=== PATIENT | female | born 1960 | race African-American/Black ===

== ENCOUNTER 2017-01-01 20:06 | Emergency (ER) | payer OTHER ==
[2017-01-01 20:19] VITALS: BMI 21.2
--- NOTE | 2017-01-01 20:41 | DR.GENAD ---
HPI - PCP Primary Care Physician: Ellie LISA - Complaint/Symptoms Chief Complaint Doctors Comments: Patient states that she get fluid drained every 2-3 months; tonkhris had dyspnea and came to the ED. Dr Beal usually drains the excess fluid every 2-3 months according to patient Chief Complaint:: CIRROSIS OF THE LIVER, ABDOMINAL SWELLING, DIFFICULTY BREATHING - Source History Provided: Patient, Family Member - Mode of Arrival Mode of Arrival: Wheelchair - Timing Onset of Chief Complaint: 01/01/17 PMH - PMH Past Medical History: Yes Past Medical History: Hypertension, DE Past Medical History Comment: ENLARGED HEART, IRREGULAR HEART RATE Past Surgical History: Yes Surgical History: CABG/Valve Surgery Past Surgical History Comment: PACEMAKER, PORT - Family History History of Family Medical Conditions: Yes Family Medical History: Diabetes Mellitus, Cancer - Social History Does patient currently use any type of tobacco product: No Have you used tobacco products in the last 12 months: No Type of Tobacco Use: None Does any household member use tobacco: No Alcohol Use: None Do you use any recreational Drugs:: No Lives With: Spouse Lives Where: Home - infectious screening In the last 2 months have you had wt loss of >10#?: YES Have you had fever, night sweats or hemotysis?: No Have you traveled outside the country in the last 6 months?: No Isolation: Standard ROS - Review of Systems Constitutional: No Symptoms Reported Eyes: No Symptoms Reported ENTM: No Symptoms Reported Respiratoy: No Symptoms Reported Cardiovascular: No Symptoms Reported Gastrointestinal/Abdominal: No Symptoms Reported Genitourinary: No Symptoms Reported Neurological: No Symptoms Reported Musculoskeletal: No Symptoms Reported Integumentary: No Symptoms Reported Hematologic/Lymphatic: No Symptoms Reported Endocrine: No Symptoms Reported Psychiatric: No Symptoms Reported All Other Systems: Reviewed and Negative PE - Vital Signs Vitals: Pulse Rate 115 Respiratory Rate 16 Blood Pressure 58/44 O2 Sat by Pulse Oximetry 96 - General Limitations: No Limitations General Appearance: Alert - Head Head Exam: Normal Inspection, Atraumatic - Eyes Eye exam: Normal Appearance, PERRL, EOMI - ENT ENT Exam: Normal Exam External Ear Exam: Normal External Inspection TM/Canal Exam: Bilateral Normal Nose Exam: Normal Nose Exam Mouth Exam: Normal Inspection Throat Exam: Normal Inspection - Neck Neck Exam: Normal Inspection - Chest Chest Inspection: Normal Inspection - Respiratory Respiratory Exam: Normal Lung Sounds Bilat Respiratory Exam: Bilateral Clear to Auscultation - Cardiovascular Cardiovascular Exam: Regular Rate, Normal Rhythm - Abdominal Exam Abdominal Exam: Normal Inspection, Normal Bowel Sounds Abdominal Tenderness: Other (enlarged girth) - Extremities Extremities Exam: Normal Inspection, Full ROM, Tenderness - Back Back Exam: Normal Inspection, Full ROM - Neurologic Neurological Exam: Alert, Oriented X3, CN II-XII Intact - Psychiatric Psychiatric Exam: Normal Affect, Normal Mood - Skin Skin Exam: Warm, Dry, Intact Course - Consultation Called: 23:40 (Dr Plaza accepted to [facility] only bed available) ROR - Labs Reviewed Laboratory Results Reviewed?: Yes (low sod, elevated bun,cr) Result Diagrams: 01/01/17 21:25 01/01/17 21: Laboratory: WBC 6.3 X10^3/uL (3.6-10.0) 01/01/17 21: RBC 3.79 X10^6/uL (3.5-5.4) 01/01/17 21: Hgb 12.6 g/dL (12.0-16.0) 01/01/17: Hct 37.8 % (36.0-47.0) 01/01/17: MCV 99.8 fL (80.0-100.0) 01/01/17: MCH 33.3 pg (27.0-34.0) 01/01/17: MCHC 33.4 g/dL (33.0-35.0) 01/01/17: RDW 16.5 % (11.6-16.5) 01/01/17: Plt Count 135 X10^3/uL (150.0-450.0) L 01/01/17 21: MPV 9.1 fL (7.4-11.0) 01/01/17: Neut % 79.2 % (42.0-75.0) H 01/01/17: Lymph % 14.3 % (21.0-51.0) L 01/01/17 21: Mclennan % 5.1 % (0.0-13.0) 01/01/17: Eos % 0.7 % (0.9-2.9) L 01/01/17: Baso % 0.7 % (0.2-1.0) 01/01/17 21:25 Neut # 5.0 x10^3/uL (2.2-4.8) H 01/01/17 21:25 Lymph # 0.9 X10^3/uL (1.3-2.9) L 01/01/17 21:25 Mclennan # 0.3 x10^3/uL (0.3-0.8) 01/01/17 21:25 Eos # 0.0 x10^3/uL (0.0-0.2) 01/01/17 21:25 Baso # 0.0 X10^3/uL (0.0-0.1) 01/01/17 21:25 Absolute Nucleated RBC 0.2 /100WBC 01/01/17 21:25 INR Target Range - 01/01/17 21:25 INR 2.66 (0.8-1.3) H 01/01/17 21:25 PTT 45.7 SECONDS (22.9-36.5) H 01/01/17 21:25 PTT Comment - 01/01/17 21:25 Sodium 130 mmol/L (136-145) L 01/01/17 21:25 Corrected Sodium TNP 01/01/17 21:25 Potassium 5.5 mmol/L (3.5-5.1) H 01/01/17 21:25 Chloride 96 mmol/L (98-107) L 01/01/17 21:25 Carbon Dioxide 20.9 mmol/L (21-32) L 01/01/17 21:25 BUN 61 mg/dL (7-18) H 01/01/17 21:25 Creatinine 3.80 mg/dL (0.55-1.02) H 01/01/17 21:25 Est GFR (MDRD) Af Amer 16 (>60) L 01/01/17 21:25 Est GFR (MDRD) Non-Af 13 (>60) L 01/01/17 21:25 Glucose 109 mg/dL (65-99) H 01/01/17 21:25 Calcium 8.5 mg/dL (8.5-10.1) 01/01/17 21:25 Corrected Calcium 9.1 mg/dL (8.5-10.1) 01/01/17 21:25 Total Bilirubin 0.80 mg/dL (0.2-1.0) 01/01/17 21:25 AST 29 Units/L (15-37) 01/01/17 21:25 ALT 22 Units/L (12-78) 01/01/17 21:25 Alkaline Phosphatase 123 Units/L (46-116) H 01/01/17 21:25 Ammonia < 10 umol/L (11-32) L 01/01/17 21:25 Total Protein 6.8 g/dL (6.4-8.2) 01/01/17 21:25 Albumin 3.2 g/dL (3.4-5.0) L 01/01/17 21:25 Globulin 3.6 g/dL (2.5-4.5) 01/01/17 21:25 Albumin/Globulin Ratio 0.9 Ratio (1.1-2.1) L 01/01/17 21:25 Amylase 81 Units/L (25-115) 01/01/17 21:25 Lipase 177 Units/L (73-393) 01/01/17 21:25 - Diagnosis Discharge Problem: Hyperkalemia Acute renal failure (ARF) Qualifiers: Acute renal failure type: with other specified pathological lesion Qualified Code(s): N17.8 - Other acute kidney failure Cirrhosis of liver Qualifiers: Hepatic cirrhosis type: unspecified hepatic cirrhosis Ascites presence: with ascites Qualified Code(s): K74.60 - Unspecified cirrhosis of liver Dyspnea Qualifiers: Dyspnea type: shortness of breath Qualified Code(s): R06.02 - Shortness of breath - Discharge Plan Condition: Stable - Follow ups/Referrals Follow ups/Referrals: KATE LISA [Primary Care Provider] - 3 days - Instructions
[2017-01-01 21:34] LABS: BASOPHILS % (AUTO) 0.7 % (0.2-1.0); EOSINOPHILS % (AUTO) 0.7 % (0.9-2.9); HEMATOCRIT 37.8 % (36.0-47.0); HEMOGLOBIN 12.6 g/dL (12.0-16.0); LYMPHOCYTES # (AUTO) 0.9 X10^3/uL (1.3-2.9); LYMPHOCYTES % (AUTO) 14.3 % (21.0-51.0); MEAN CORPUSCULAR HEMOGLOBIN 33.3 pg (27.0-34.0); MEAN CORPUSCULAR HGB CONC 33.4 g/dL (33.0-35.0); MEAN CORPUSCULAR VOLUME 99.8 fL (80.0-100.0); MEAN PLATELET VOLUME 9.1 fL (7.4-11.0); MONOCYTES # (AUTO) 0.3 x10^3/uL (0.3-0.8); MONOCYTES % (AUTO) 5.1 % (0.0-13.0); NEUTROPHILS % (AUTO) 79.2 % (42.0-75.0); PLATELET COUNT 135 X10^3/uL (150.0-450.0); RED BLOOD COUNT 3.79 X10^6/uL (3.5-5.4); RED CELL DISTRIBUTION WIDTH 16.5 % (11.6-16.5); WHITE BLOOD COUNT 6.3 X10^3/uL (3.6-10.0)
[2017-01-01 21:43] LABS: AMMONIA < 10 umol/L (11-32)
[2017-01-01 21:47] LABS: ALANINE AMINOTRANSFERASE 22 Units/L (12-78); ALBUMIN 3.2 g/dL (3.4-5.0); ALKALINE PHOSPHATASE 123 Units/L (46-116); ASPARTATE AMINO TRANSFERASE 29 Units/L (15-37); BLOOD UREA NITROGEN 61 mg/dL (7-18); CALCIUM 8.5 mg/dL (8.5-10.1); CARBON DIOXIDE 20.9 mmol/L (21-32); CHLORIDE 96 mmol/L (98-107); COR CA(FOR HYPOALB) 9.1 mg/dL (8.5-10.1); GLUCOSE 109 mg/dL (65-99); SODIUM 130 mmol/L (136-145); TOTAL PROTEIN 6.8 g/dL (6.4-8.2); eGFR BLACK RACES 16 (>60); eGFR NON BLACK RACES 13 (>60)
[2017-01-01 21:48] LABS: AMYLASE 81 Units/L (25-115); LIPASE 177 Units/L (73-393)
[2017-01-01] MEDS ORDERED: DUONEB 0.5 MG/3 MG NEB ONE (22:10)
[2017-01-01] MEDS ORDERED: DUONEB 0.5 MG/3 MG ONE (22:15)
[2017-01-01] MEDS ORDERED: PROVENTIL NEB TX 0.083% 2.5MG/ 3ML NEB ONE (22:27)
[2017-01-02] MEDS ORDERED: NS 1000 ML 1,000 ML ONE (00:47)
[2017-01-02] MEDS ORDERED: NS 1000 ML 1,000 ML IV SCH (01:00)
[2017-01-02 02:08] VITALS: BP 124/62
== END 2017-01-02 02:03 | disposition short-term general hospital (02) ==
LOC: ER 20:32
DX: N17.8 Other acute kidney failure (principal); K74.60 Unspecified cirrhosis of liver; R06.02 Shortness of breath; E87.5 Hyperkalemia
CPT/HCPCS: 36415; 80053; 82140; 82150; 83690; 85025; 85610; 85730; 94640; 96365; 99285; A4222; J7620